=== PATIENT | female | born 1985 | race Caucasian/White ===

== ENCOUNTER 2018-05-25 17:20 | Inpatient (IN) | payer OTHER ==
[2018-05-25 18:00] LABS: Bilirubin Negative (Negative); Blood, Urine Small (Negative); Clarity CLEAR (Clear); Glucose, Urine (Dipstick) Negative (Negative); Leukocyte Moderate (Negative); Nitrite Negative (Negative); Protein, Urine (Dipstick) Negative (Neg-Trace); Specific Gravity, Urine 1.017 (1.002-1.036); Urobilinogen 0.2 mg/dL (0.2-1.0); pH, Urine 5.5 (5.0-9.0)
[2018-05-25 18:03] LABS: Bacteria/HPF 1+ HPF (None Seen); Hyaline Casts/LPF 0-3 HYALINE CAST LPF (0-3 Hyaline); Pathc Cast-AUWi Flag 0.43 (0-2.49); Pregnancy Test - Urine (BHCG) Negative (Negative); Pregu Control Background? CLEAR/WHITE (CLR/WHITE); Pregu Control Bar Appear? YES (CONTROL BAR); RBC/HPF 0-3 HPF (0-3); Specific Gravity 1.017 (1.002-1.036)
--- NOTE | 2018-05-25 21:45 | MRI ---
LUMBAR SPINE MRI NONCONTRAST: 05/25/18 INDICATION: Urinary incontinence. Cauda equina syndrome. No prior imaging comparison available. FINDINGS: The conus medullaris is normal in morphology terminating at the L1 level. There is an incidental mild disc osteophyte at T11-12 with mild effacement of ventral thecal sac. At L1-2, there is no significant central canal or neural foraminal stenosis. L2-3: Mild disc bulge without significant compromise of central canal and neural foramina. L3-4: Mild broad based disc bulge without significant central canal or neural foraminal stenosis. L4-5: Broad based disc bulge is present with mild narrowing of the central canal. Mild bilateral neur al foraminal narrowing is present. Left greater than right. L5-S1: Right paracentral/subarticular disc protrusion is present with severe right subarticular narro wing producing impingement upon the right S1 nerve root. There is moderate-severe stenosis of the lef t aspect of the terminal thecal sac, with impingement upon the traversing left S1 nerve root. This is superimposed upon a broad based disc osteophyte. There is mild bilateral neural foraminal narrowing. Mild degenerative bilateral hypertrophy of the facet joints is seen at multiple levels of the lumbar spine. IMPRESSION: Right paracentral/subarticular disc protrusion at L5-S1 with severe right subarticular stenosis impin ging the right S1 nerve root. There is moderate-severe stenosis of the left aspect of the thecal sac which also impinges the left S1 nerve root. The imaging findings do correlate to clinical diagnosis of cauda equina syndrome. Recommend emergent neurosurgical consultation. Results conveyed to GABBIE Barron of the Emergency Dept., at the time of dictation. POS: [facility]
[2018-05-25] MEDS ORDERED: Ondansetron PF 4 MG/2 ML Vial ONE (23:35)
[2018-05-25] MEDS ORDERED: Morphine 2 MG/ML SYRINGE ONE (23:35)
--- NOTE | 2018-05-26 00:40 | PDOC.FPRHP ---
- History of Present Illness Chief Complaint: urinary incontinence History of Present Illness: 32 yo F with hx of disc herniation presents with new onset urinary incontinence x 3 days. She noticed when she stood up she had urine dribling that she could not control, and when she voids she feels that she cannot void completely. Denies fever/chills. Last summer pt states she was lifting a 5 gallon bucket at her job and hurt her lower back. She has been having worsening Rt sided numbness from the right side of her tailbone, down the posterior and lateral side of her leg down to her foot since January. She does not have vulvar or groin numbness, and denies weakness. States that she has been having it worked up through workmen's compensation. Her PCP was Dr. Rodriguez in [facility] who sent her to Dr. Singletary (neuro), but for workman's comp she has been sent to neurologist Dr. Sutton. In the ED, MRI showed L5-S1 disc herniation and S1 nerve impingement. Neurology was consulted from the ED. - Allergies/Adverse Reactions Allergies Allergy/AdvReac Type Severity Reaction Status Date / Time No Known Allergies Allergy Verified 01/22/16 14:08 - Home Medications Medication Instructions Recorded Confirmed Type Acetaminophen With Codeine 1 - 2 tablet PO Q6HR PRN #0 tablet 01/23/16 Rx [Tylenol with Codeine #3] Ibuprofen [Motrin] 600 mg PO Q6HR PRN #0 tab 01/23/16 Rx - History PMHx: Ectopic in 2015, normal 2009 PSHx: Rt ankle surgery 2006, Breast augmentation 2011, ectopic surgery 2015 FHx: DM in mGM, pGM; denies cardiac disease or cancer Social: 2 cig/week for past 15 years; 2-3 alcoholic beverages/week, denies illicit drug use - Review of Systems General: denies: fever/chills, weight/appetite/sleep changes Eyes: denies: eye pain, vision changes, other (denies ear pain or hearing difficulty) ENT: reports: nasal congestion, rhinorrhea Respiratory: denies: cough, congestion Cardiovascular: denies: chest pain, palpitation Gastrointestinal: reports: constipation. denies: nausea, vomiting, diarrhea Genitourinary: reports: incontinence, other (feels unable to completely empty). denies: dysuria Skin: denies: rashes, lesions Musculoskeletal: reports: pain (Lower back) Neurological: reports: numbness (see HPI). denies: weakness - Vital signs BP: [107/59] HR: [72] RR: [16] Tmax: [98.4] Pox: [100]% on [RA] Wt: [62.1 kg] - Physical Exam Constitutional: NAD, awake, alert and oriented HEENT: normocephalic and atraumatic, PERRLA, EOMI, conjunctiva clear, grossly normal hearing, MMM, oropharynx clear, good dention Neck: supple, no LAD Heart: RRR, normal S1/S2, no murmurs/rubs/gallops Lungs: CTAB, no respiratory distress, good air movement, no rales/rhonchi, no wheezing, no retractions Abdomen: soft, non-tender, bowel sounds present, no masses/distention Musculoskeletal: normal structure, normal tone Neurological: other (No focal weakness; numbness over L5-S1 distribution from rt buttock down rt leg to foot; anal sphincter normal tone) Skin: no rash/lesions, good turgor, capillary refill <2 seconds Heme/Lymphatic: no unusual bruising or bleeding, no purpura Psychiatric: normal mood and affect, good judgment and insight, intact recent and remote memory FMR H&P: Results - Labs Lab results: Urine Ketones Negative mg/dL (Negative) 05/25/18 17:39 Urine Blood Small (Negative) H 05/25/18 17:39 Urine Nitrite Negative (Negative) 05/25/18 17:39 Ur Leukocyte Esterase Moderate (Negative) H 05/25/18 17:39 Urine RBC 0-3 HPF (0-3) 05/25/18 17:39 Urine WBC 11-20 HPF (0-3) H 05/25/18 17:39 Ur Squamous Epith Cells 4-6 HPF (0-3) H 05/25/18 17:39 Urine Bacteria 1+ HPF (None Seen) H 05/25/18 17:39 - Radiology Interpretation Other Status: report reviewed by me (MRI lumbar spine: L5-S1 disc hernation, S1 nerve impingement) FMR H&P: A/P - Problem List (1) UTI (urinary tract infection) Current Visit: Yes Status: Acute (2) Herniation of intervertebral disc between L5 and S1 Current Visit: Yes Status: Acute Code(s): M51.27 - OTHER INTERVERTEBRAL DISC DISPLACEMENT, LUMBOSACRAL REGION (3) Numbness of right lower extremity Current Visit: Yes Status: Acute Code(s): R20.0 - ANESTHESIA OF SKIN - Plan 32 yo F Concern for Cauda Equina Syndrome -New onset incontinence for past 3 days -UA + for UTI, incontinence most likely 2/2 infection -Numbness corresponding to L5-S1 dermotome down Rt side, no focal weakness, anal sphincter normal tone, no vulvar/groin numbness -MRI showed L5-S1 disc herniation and S1 nerve impingement -Neurosurgery Dr. Sutton consulted from ED, appreciate recommendations -NPO at midnight L5-S1 Disc herniation - See above UTI -1 g rocephin in ED -Urine cx pending Dispo: admit to surgical obs DVT ppx: lovenox Diet: NPO PCP: Makayla Perkins FMR H&P: Upper Level - Pertinent history Redd Barrett is a 32 year old female with a chronic low back pain and L5-S1 disc herniation who presents to the ED with worsening right lower extremity parasthesia and urinary retention over the past 3 days. She denies perineal numbness and bowel incontinence. - Pertinent findings Exam: General: alert and oriented x 3 in no distress. Neuro: CN II-XII intact grossly; 5/5 strenght throughout. Decreased sensation across L5 nerve dermatome; rectal sphincter tone intact. - Plan Date/Time: 05/26/18 0039 I, Mackenzie Richardson, have evaluated this patient and agree with findings/plan as outlined by supervisor international [place] resident. Pertinent changes/additions are listed here. 1. Acute worsening of Lumbar spinal stenosis with concern for cauda equina syndrome. - will admit to surgical for observation - Neurosurgery called from ED and recommended admission with possible intervention - will hold off on systemic steroids for now. DVT prophylaxis: Lovenox. Addendum - Attending - Attending Attestation Date/Time: 05/26/18 0146 I personally evaluated the patient and discussed the management with Dr. Anibal Barrientos I agree with the History, Examination, Assessment and Plan documented above with any addition or exceptions noted below.32 yo female with work related back injury with L5-S1 right radicular pain and recent onset urinary incontinence. Patient seen in ER with concern for Cauda equina syndrome which is not substantiated by current exam or imaging, nl anal tone and no perineal symptoms she does demonstrate,new onset urinary incontinence, Positive SLR and parathesia right S1 distribution,right lower strength appears normal. Patient is pending referral pain management for epidural steroidsl. Patient will be placed observation and consultation with Neurosurgery to determine any need for urgent surgical intervention.
[2018-05-26] MEDS ORDERED: cefTRIAXone\\ROCEPHIN 1 GM in Sodium Chloride 0.9% 100 ML IVPB SCH (01:00)
[2018-05-26] MEDS ORDERED: Senokot S 8.6-50 MG TAB PO PRN (02:26)
[2018-05-26] MEDS ORDERED: Ondansetron PF 4 MG/2 ML Vial IVP PRN (02:26)
[2018-05-26] MEDS ORDERED: Acetaminophen 325 MG TAB PO PRN (02:26)
[2018-05-26] MEDS ORDERED: Ondansetron ODT 4 MG TAB PO PRN (02:26)
[2018-05-26] MEDS ORDERED: Morphine 4 MG/ML VIAL SLOW IVP PRN (04:25)
[2018-05-26] MEDS: Enoxaparin Sodium 40 MG/0.4 ML SYRINGE SC SCH (08:30)
--- NOTE | 2018-05-26 08:32 | PRG ---
DATE OF SERVICE: 05/26/2018 NEUROSURGERY PROGRESS NOTE I personally interviewed and examined the patient, and agreed with documentation of Karen Atwood PA-C, and Anthony White PA-C. Briefly, Redd Barrett is a 32-year-old woman known to our Neurosurgery clinic from her appointment two and half weeks ago for L5-S1 disk disease with right S1 radiculopathy. The pain has not been getting significantly better in spite of our conservative management. Still unable to walk very far. Six days ago, she began to have some incontinence. She would stand up and realize her bladder was full and not make it to the bathroom in time. This has happened on and off since then. She wondered if this was urinary tract infection. She did not have any left leg symptoms or any left-sided symptoms whatsoever. She still does not. Due to the urinary incontinence, she was evaluated in the emergency department, and admitted overnight. Her urinalysis did show some bacteria. She reports normal perineal sensation subjectively. Toileting herself does not feel any different than it usually does just a matter of not appreciating that her bladder is in need of emptying. Her neurological function is stable from her evaluation in the clinic. MR imaging shows some further narrowing of the spinal canal at the lumbosacral interspace, but on the right side only. The left-sided and central sacral nerve roots are still visible in CSF and not actively compressed on the scan. There is a hint of a pars defect. The molding of the superior portion of the sacrum and the inferior portion of L5 might suggest some instability in the past or currently. My plan is to have a repeat neurosurgical examination of the perineum including rectal sensation and tone, and perineal sensation. She prefers one of our female PAs to do that and we can accommodate that request. If there is normal sensation and function, we can operate on this tomorrow. If there is abnormal sensation, then sooner out to be a bit better and Dr. Byrd has agreed to do so. I am going to get a flexion-extension views looking for instability and a CT scan looking for pars defect. If those are present, I will consider fusion in addition to decompression. If they are not present, then a wide decompression and diskectomy should be sufficient. We will keep her n.p.o. for surgery tomorrow. She is already n.p.o. and once her perineum is sufficiently examined, then we can make a decision on the date of her surgical intervention. Ms. Barrett is young and healthy, likely to be a good surgical candidate. Job ID: [id number] MTDD
--- NOTE | 2018-05-26 08:40 | RAD ---
LUMBAR SPINE SERIES 7 VIEWS: History: Back pain. Evaluation for L5-S1 stability. FINDINGS: Vertebral bodies are normal in height. The disc spaces appear well preserved. There is no evidence of spondylolisthesis. I do not appreciate any abnormal motion between the flexion and extension views. An IUD is incidentally noted. IMPRESSION: Unremarkable lumbar spine series. POS: [facility]
--- NOTE | 2018-05-26 09:49 | CT ---
CT LUMBAR SPINE NONCONTRAST: DATE: 05/26/2018. HISTORY: A 32-year-old female with low back pain and right lumbar radiculopathy. CT was ordered to evaluate f or possible L5 pars defect. FINDINGS: There are 5 lumbar-type vertebrae. Vertebral body heights are maintained. There is exaggerated lord osis of the lower lumbar spine. T11-12: Moderate discogenic degenerative changes, without central stenosis or high-grade neural mark inal stenosis. Mild disk bulge. T12-L1: Normal. L1-2: Normal. L2-3: Normal. L3-4: Minimal retrolisthesis of L3 on L4. Otherwise, essentially normal. L4-5: No central stenosis. Minimal disk bulge. Mild bilateral degenerative facet changes. Mild bi lateral neural foraminal stenosis. No L4 pars interarticularis defects. L5-S1: There are no L5 pars interarticularis defects. There are moderate right degenerative facet c hanges and mild to moderate left degenerative facet changes, causing a mild grade I anterolisthesis o f L5 on S1. Moderate disk space narrowing. Mild to moderate bilateral neural foraminal stenosis. I n addition to disk bulge, there is a prominent central and bilateral paracentral disk herniation, asy mmetrically larger on the right side than left, displacing the bilateral S1 nerve roots posteriorly a gainst the posterior elements, and deforming them, right greater than left. Additional right S2 and S3 nerve roots may also be affected. This causes severe central spinal canal stenosis and severe lat eral recess stenosis bilaterally, right greater than left. IMPRESSION: 1. Facet osteoarthrosis, moderate degenerative disk disease, and grade I spondylolisthesis at L5-S1. 2. No spondylolysis. 3. Severe central stenosis and severe lateral recess stenosis bilaterally (right worse than left) at L5-S1, frankly compressing sacral nerve roots. 4. Exaggerated lordosis of the lower lumbar spine. POS: [facility]
[2018-05-26] MEDS ORDERED: traMADol HCl 50 MG TAB PO PRN ×2 (10:53)
--- NOTE | 2018-05-26 11:26 | PRG ---
DATE OF SERVICE: 05/26/2018 SUBJECTIVE: I am seeing Ms. Redd Barrett in consultation. She came in with concern of progressive right lower extremity symptoms and urinary incontinence yesterday evening. She had seen my colleague, Dr. Sutton in clinic for L5-S1 disk extrusion, right greater than left with low back and right leg pain over the last five days. She has had also concerns of urinary dribbling. She has had no fecal incontinence. She has continued to remain ambulatory with no saddle anesthesia. MRI demonstrated a L5-S1 disk extrusion with right greater than left effacement of the sacral roots. PHYSICAL EXAMINATION: This morning, she is alert and appropriate. She has trace weakness in the right S1 myotome, but intact rectal tone on my colleague, Christopher's exam and just trace decrease in sensation in the right saddle region. She has no left lower extremity pain or motor deficits. IMPRESSION AND PLAN: The plan for the patient after discussion with Dr. Sutton is flexion-extension x-rays and CT was likely procession to surgery tomorrow for likely laminectomy infusion. I have discussed this with the patient. She is in agreement with this plan. I will let her know Dr. Sutton would be following up. I would be fine with her eating today. DIAGNOSES: 1. L5-S1 disk extrusion with sacral radiculopathy. 2. Concern for L5 spondylolysis and spondylolisthesis. Job ID: [id number]
[2018-05-26] MEDS ORDERED: Acetaminophen/Codeine 30-300mg Tablet PO PRN (12:03)
[2018-05-26] MEDS: tiZANidine HCl 4 MG TAB PO PRN ×2 (12:28→23:55)
[2018-05-26] MEDS: Acetaminophen/Codeine 30-300mg Tablet PO PRN (21:11)
[2018-05-27] MEDS ORDERED: Thrombin 5000 UNITS/5 ML VIAL ONE (06:17)
[2018-05-27] MEDS ORDERED: Bupivacaine HCl 0.5%/Epinephrine 1:200,000/PF 30 ml Vial ONE (06:17)
[2018-05-27] MEDS ORDERED: Sodium Chloride 0.9% 10 ML ONE (06:33)
[2018-05-27] MEDS ORDERED: Midazolam HCl 2 mg/2 ml Vial ONE ×2 (06:47→06:48)
[2018-05-27] MEDS ORDERED: Fentanyl 100 MCG/2 ML VIAL ONE ×3 (06:48→10:09)
[2018-05-27] MEDS ORDERED: CEFAZOLIN 2 GM/50 ML BAG ONE (06:48)
--- NOTE | 2018-05-27 06:48 | PDOC.FM ---
- Subjective Subjective: not present in room on rounds, nursing reports she went to surgery at 0600, vaginal itching/burning reported last night. No acute events overnight. - Objective Vital Signs & Weight: Vital Signs (12 hours) Temp Pulse Resp BP BP Pulse Ox 05/27/18 05:56 98.3 F 56 L 16 92/50 L 99 05/26/18 23:55 65 18 105/53 L 98 05/26/18 20:00 97.9 F 69 16 108/57 L 100 Weight Weight 62.1 kg I&O: 05/25/18 05/26/18 05/27/18 06:59 06:59 06:59 Intake Total 0 480 Balance 0 480 Dx/Plan (1) Herniation of intervertebral disc between L5 and S1 Code(s): M51.27 - OTHER INTERVERTEBRAL DISC DISPLACEMENT, LUMBOSACRAL REGION Status: Acute (2) UTI (urinary tract infection) Status: Acute - Plan Plan: L5-S1 protrusion -Numbness corresponding to L5-S1 dermotome down Rt side, no focal weakness, anal sphincter normal tone, no vulvar/groin numbness - suspicion for cauda equina low at this point, continue to monitor for changes -MRI showed L5-S1 disc herniation and S1 nerve impingement -Neurosurgery Dr. Sutton consulted from ED, appreciate recommendations -NPO at midnight, for laminectomy/fusion 05/27 L5-S1 Disc herniation - See above UTI - New onset incontinence for past 3 days, UA + for UTI, - 1 g rocephin in ED - Urine cx pending - consider monostat for yeast Code: full DVT ppx: lovenox Dispo: surgery today, continue to follow. Addendum - Attending - Attending Attestation Date/Time: 05/27/18 6505 I personally evaluated the patient and discussed the management with Dr. Garcia I agree with the History, Examination, Assessment and Plan documented above with any addition or exceptions noted below - Patient denies complaints. Comfortable s/p surgery. Afebrile VSS. A/P: 1) L-S radiculopathy secondary to herniated disc- s/p laminectomy and microdoscectomy- plans as per neurosurgery. 2) UTUI- urine culture negative to date. 3) Yeast vaginitis- will give one dose of diflucan.
--- NOTE | 2018-05-27 07:49 | PRG ---
DATE OF SERVICE: 05/27/2018 NEUROSURGERY PROGRESS NOTE Nena was examined yesterday and her MR suggested a small pars defect at L5. We had a CT scan done and flexion-extension x-rays. The CT did not reveal pars defect and flexion-extension did not show overt instability. Nena still has excruciating back and radiating leg pain, a numb area in the posterior thigh and the right gluteal area has increased in size. There have been no episodes of incontinence. This morning at the time of our examination, she is stable. We took a long time to review x-ray findings thus far in the preoperative area and we discussed the lack of need for a fusion operation. I described to them a decompressive laminectomy at L5-S1 across the entire canal and then a microdiskectomy with a right-sided approach. Informed Consent: I discussed indications, risks, benefits, alternatives, expected outcomes from surgery. The risks we discussed included, but were not limited to, bleeding, infection, CSF leak, nerve damage, paralysis, incontinence, cardiopulmonary complications of anesthesia, major blood vessel injury, and . She understands the risks and wants to proceed. If she feels well after surgery, she can go home today. Job ID: [id number]
[2018-05-27] MEDS ORDERED: tiZANidine HCl 4 MG TAB PO PRN (09:28)
[2018-05-27] MEDS ORDERED: diphenhydrAMINE 25 MG CAP PO PRN (09:28)
[2018-05-27] MEDS ORDERED: Milk Of Magnesia 30 ML UDCUP PO PRN (09:28)
[2018-05-27] MEDS ORDERED: Mag-Al 1200 mg/1200 mg/30 ML UDCUP PO PRN (09:28)
[2018-05-27] MEDS ORDERED: diphenhydrAMINE 50 MG/ML VIAL IVP PRN (09:28)
[2018-05-27] MEDS ORDERED: Promethazine 25 MG TAB PO PRN (09:28)
[2018-05-27] MEDS ORDERED: Promethazine HCl 25 MG/ML VIAL IM PRN ×3 (09:28→09:41)
[2018-05-27] MEDS ORDERED: Bisacodyl 10 MG SUPP PR PRN (09:28)
[2018-05-27] MEDS ORDERED: HYDROmorphone 2 MG/ML VIAL SLOW IVP PRN (09:41)
[2018-05-27] MEDS ORDERED: Promethazine HCl 25 MG/ML VIAL SLOW IVP PRN ×2 (09:41)
[2018-05-27] MEDS ORDERED: Ondansetron HCl/PF 4 MG/2 ML Vial IVP PRN ×2 (09:41)
--- NOTE | 2018-05-27 10:23 | HP ---
HISTORY OF PRESENT ILLNESS: This is a 32-year-old female, who came into the hospital last night due to urinary incontinence for the past 4 or 5 days. Ms. Barrett states that she got off work in the evening when they were sitting and noticed that she had to go to the bathroom, however, when she stood up, a little bit came out. She thought that perhaps she had UTI after taking some AZO cranberry pills. She states that she has not done any new heavy lifting or twisting since she was seen in our Neurosurgery Department on 05/10/2018. The patient states that she has not improved over the last week and a half or so since our last visit. She denies any left-sided symptoms. She states that original injury was due to lifting a bucket of soaps off the counter when she lifted and twisted. She states that all twisting sense is still along the S1 dermatome on the right; numbness and tingling in her right buttock, however, she states that she feels in perineum an urge to use the restroom, both bowel and bladder. REVIEW OF SYSTEMS: A 10-point review of systems has been completed and is negative other than stated in the above HPI. PAST MEDICAL HISTORY: Abnormal Pap, anemia. PAST SURGICAL HISTORY: Right ankle surgery in 2005 with instrument removed in 2008, cyst removed in 2010, breast augmentation in 2014, ectopic and rupture repair in 2015, LEEP procedure in 2017, [place] 2018. PAST HOSPITALIZATIONS: Childbirth in 2009, dehydration in 2011, ectopic in 2016. FAMILY HISTORY: Noncontributory. SOCIAL HISTORY: The patient is a smoker. Drinks alcohol. Does not use any other illicit drugs. She is sexually active, , and lives with her and children. MEDICATIONS: Tramadol. ALLERGIES: NO KNOWN DRUG ALLERGIES. PHYSICAL EXAMINATION: GENERAL: The patient is resting in the hospital bed this morning. She is surrounded by her family. She is well appearing, well nourished, alert, and oriented. HEENT: Head is normocephalic, atraumatic. Pupils are equal, round, and reactive to light. Vision in intact. Hearing is intact. Moist mucous membranes. RESPIRATION: Normal work of breathing on room air and symmetric chest rise. CARDIO: Regular rate and rhythm. NEUROLOGIC: The patient is alert and oriented x3. Speech is spontaneous and fluent. Normal attention span. Normal fund of knowledge. Cranial nerves 2 through 12 are intact. EXTREMITIES: All 4 extremities are moving well. Normal muscle tone and bulk. Extremities, 5/5 bilateral strength in hip flexion, knee flexion, knee extension , dorsiflexion, plantar flexion, EHL, S1 radiculopathy on the right side. Positive single leg raise on the right. Sensation of hip, normal. Reflexes are symmetric. Has decreased sensation on the lateral right foot, lower leg, and lateral thigh. The patient has a perineum sensation and normal rectal tone. IMAGING: MRI shows a right paracentral disk protrusion of the L5-S1 with severe right subarticular stenosis impinging the right S1 nerve root. There is [id number] stenosis of the left aspect of the thecal sac, which also impinges the left S1 nerve root. The imaging findings do correlate with clinical diagnosis of cauda equina syndrome. ASSESSMENT AND PLAN: The patient has lumbar herniated nucleus pulposus with S1 radiculopathy on the right eliciting her current sensation with perianal and good rectal tone. We will meet her before surgery tomorrow. We will have her n.p.o. after midnight and surgery tomorrow morning. Job ID: [id number] [facility]
--- NOTE | 2018-05-27 10:24 | OP ---
DATE OF PROCEDURE: 05/27/2018 RADIAL ROUTER OPERATOR: Karen Atwood PA-C. PREOPERATIVE INDICATION: Treat pain and prevent neurological deterioration. PREOPERATIVE DIAGNOSIS: Intervertebral disk herniation L5-S1 with right S1 radiculopathy and right S2 radiculopathy. 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 OPERATIVE PROCEDURE: Decompressive laminectomy L5-S1, medial facetectomy and foraminotomy right L5-S1, and right-sided microdiskectomy L5-S1. PREOPERATIVE MEDICATION: Ancef 2 g IV. DRAIN NUMBER: Zero. DRAIN TYPE: None. DESCRIPTION OF PROCEDURE: The patient was brought to the operating room. General endotracheal anesthesia was induced. The patient was carefully positioned on the [place] frame with appropriate padding for the chest and hips. A lateral fluoro radiograph was used to plan our incision. The lumbar skin was sterilely prepped and draped. We opened the midline incision with a 10 blade knife. We controlled bleeding with bipolar and monopolar cautery. We used monopolar cautery to dissect through subcutaneous tissues to the thoracodorsal fascia. We incised the fascia in the midline and reflected the paraspinal muscles off the spinous process and laminae of L5 and S1. A self-retaining retractor was placed and a lateral fluoro radiograph confirmed the levels upon which we were operating. We then used Leksell and Kerrison rongeurs to remove the spinous process of L5 to thin the lamina and perform the laminectomy. We widened our laminectomy defect until we were in line vertically with the S1 pedicles. We removed the yellow ligament in piecemeal fashion. We removed the superior portion of the sacral lamina and easily visualized the common thecal sac, the S1 and S2 nerve roots. We brought the operative microscope into the field. Under microscopic magnification and using microsurgical techniques, we carefully mobilized the right-sided sacral nerve roots medially, saw intervertebral disk protrusion that stretched all the nerve roots. We incised just right of the midline and some disk came out under pressure. We removed multiple loose fragments of disk. We reached into the interspace and removed more loose fragments that were not adherent to the endplates. At the completion of our diskectomy, all of the remaining disk was firmly adherent to the endplates of L5 and S1 and was not at risk for reherniation. We irrigated copiously with bacitracin irrigation. We infused local anesthetic in the paraspinal muscles. We closed the wound in anatomical layers and we applied a sterile dressing. This was a clean case, no contamination. Job ID: [id number]
[2018-05-27] MEDS ORDERED: Morphine 2 MG/ML SYRINGE SLOW IVP PRN (10:45)
[2018-05-27] MEDS ORDERED: Fluconazole 100 MG TAB PO SCH (11:45)
[2018-05-27] MEDS: Acetaminophen/Codeine 30-300mg Tablet PO PRN ×3 (13:27→22:02)
[2018-05-27] MEDS: CEFAZOLIN 2 GM/50 ML-DEXTROSE 2 GM in Premix Bag 1 BAG IVPB SCH (13:30)
[2018-05-27] MEDS: Enoxaparin Sodium 40 MG/0.4 ML SYRINGE SC SCH (13:31)
[2018-05-27] MEDS ORDERED: CEFAZOLIN/Water 2 GM/20 ML SYRINGE SLOW IVP SCH (16:00)
[2018-05-27] MEDS ORDERED: PROPOFOL 200 MG/20 ML VIAL ONE (17:15)
[2018-05-27] MEDS ORDERED: Rocuronium Bromide 10 MG/ML (10ML VIAL) ONE (17:15)
[2018-05-27] MEDS ORDERED: PHENYLEPHRINE-NS 100 MCG/ML 10 ML SYRINGE ONE (17:15)
[2018-05-27] MEDS ORDERED: Ondansetron PF 4 MG/2 ML Vial ONE (17:15)
[2018-05-27] MEDS ORDERED: Lidocaine 1% PF 5 ML VIAL ONE (17:15)
[2018-05-27] MEDS ORDERED: ePHEDrine 50 MG/ML VIAL ONE (17:15)
[2018-05-27] MEDS ORDERED: Glycopyrrolate 0.2 MG/ML 5 ML SYRINGE ONE (17:15)
[2018-05-27] MEDS ORDERED: Ketorolac Tromethamine 30 MG/ML VIAL ONE (17:15)
[2018-05-27] MEDS ORDERED: Dexamethasone 20 MG/5 ML VIAL ONE (17:15)
[2018-05-27] MEDS: Sodium Chloride 0.9% 1,000 ML IV SCH ×2 (20:48→20:51)
[2018-05-27] MEDS: tiZANidine HCl 4 MG TAB PO PRN (20:49)
[2018-05-28] MEDS: CEFAZOLIN 2 GM/50 ML-DEXTROSE 2 GM in Premix Bag 1 BAG IVPB SCH (01:14)
[2018-05-28] MEDS: Acetaminophen/Codeine 30-300mg Tablet PO PRN ×2 (02:00→08:21)
--- NOTE | 2018-05-28 06:36 | PDOC.FM ---
- Subjective Subjective: Mrs. Barrett is resting comfortably in bed, she denies any new numbness or pain, fever or chills. She is ready to go home - Objective Vital Signs & Weight: Vital Signs (12 hours) Temp Pulse Resp BP BP Pulse Ox 05/28/18 02:00 98.7 F 76 16 98/50 L 100 05/27/18 20:00 98.9 F 90 18 114/70 99 Weight Weight 62.1 kg I&O: 05/26/18 05/27/18 05/28/18 06:59 06:59 06:59 Intake Total 0 480 960 Balance 0 480 960 Phys Exam - Physical Examination Constitutional: NAD HEENT: moist MMs Neck: no JVD Gastrointestinal: no distention Musculoskeletal: no edema Neurological: moves all 4 limbs Psychiatric: normal affect Skin: no rash Dx/Plan (1) Herniation of intervertebral disc between L5 and S1 Code(s): M51.27 - OTHER INTERVERTEBRAL DISC DISPLACEMENT, LUMBOSACRAL REGION Status: Acute (2) UTI (urinary tract infection) Status: Acute - Plan Plan: L5-S1 protrusion -Numbness corresponding to L5-S1 dermotome down Rt side, no focal weakness, anal sphincter normal tone, no vulvar/groin numbness - suspicion for cauda equina low at this point, continue to monitor for changes -MRI showed L5-S1 disc herniation and S1 nerve impingement -Neurosurgery Dr. Sutton consulted from ED, appreciate recommendations - laminectomy/disectomy at 05/27 L5-S1 Disc herniation - See above UTI - New onset incontinence for past 3 days, UA + for UTI, - 1 g rocephin in ED - Urine cx pending - s/p monostat for yeast Code: full DVT ppx: lovenox Dispo: POD1, ready for DC. Addendum - Attending - Attending Attestation Date/Time: 05/28/18 1733 I personally evaluated the patient and discussed the management with Dr. Garcia I agree with the History, Examination, Assessment and Plan documented above with any addition or exceptions noted below- Patient left prior to my seeing her. Stable for discharge as per neurosurgery. FOllow-up wit neurosurgery..
--- NOTE | 2018-05-28 06:54 | PRG ---
DATE OF SERVICE: 05/28/2018 NEUROSURGERY PROGRESS NOTE Ms. Barrett was one day out from L5-S1 laminectomy with right-sided microdiskectomy. She reports she feels better than she has in the last 2 to 3 months. The radiating pain down her leg is gone. She is able to get in and out of bed without much difficulty. She is walking in the halls and to the bathroom. She is able to control the bladder. Ms. Barrett does not have any new deficits I can appreciate. Ms. Barrett is ready for discharge. We discussed wound care, activity restrictions, and followup arrangements and she expresses her understanding. Job ID: [id number]
[2018-05-28 08:12] VITALS: BP 97/52; TEMP 98.1
[2018-05-28] MEDS: Enoxaparin Sodium 40 MG/0.4 ML SYRINGE SC SCH (08:22)
[2018-05-28] MEDS: tiZANidine HCl 4 MG TAB PO PRN (09:59)
--- NOTE | 2018-05-31 12:36 | DIS ---
DATE OF ADMISSION: 05/27/2018 DATE OF DISCHARGE: 05/28/2018 RESIDENT: Ruslan Garcia DO. ADMITTING ATTENDING: Yusuf Hand MD DISCHARGE ATTENDING: Dr. Deepali Davey. CONSULTS: Neurosurgery, Dr. Sutton. PROCEDURES: L5-S1 laminectomy and microdiskectomy. IMAGING DATA: Lumbar spine MRI significant for right paracentral/subarticular disk protrusion at L5-S1 with severe right subarticular stenosis impinging the right S1 nerve root, [id number] stenosis of the left aspect of the thecal sac which also impinges the left S1 nerve root. Imaging findings do correlate to clinical diagnosis of cauda equina, and I recommend emergent neurosurgical consultation. Repeat lumbar spine CT significant for facet osteoarthritis, moderate degenerative disk disease, grade 1 spondylolisthesis at L5-S1. No spondylolysis. Central canal stenosis. Exaggerated lordosis of the lower lumbar spine. PRIMARY DIAGNOSIS: L5-S1 protrusion. SECONDARY DIAGNOSES: 1. L5-S1 disk herniation with associated radiculopathy. 2. Urinary tract infection. 3. Vaginal yeast infection. DISCHARGE MEDICATIONS: 1. Tylenol No. 3 one to two tabs p.o. q.6 hours p.r.n. 2. Ibuprofen 600 mg p.o. q.6 hours. 3. Tizanidine 4 mg p.o. t.i.d. DISCONTINUED MEDICATIONS: None. HISTORY OF PRESENT ILLNESS AND HOSPITAL COURSE: Ms. Mary Prince is a 32-year-old female with a history of disk herniation who presents with new onset urinary incontinence for 3 days. She reports a history of lumbar spine disk herniation that was worked up in the outpatient setting by Dr. Sutton in a conservative manner, acutely worsening with the incontinence and right-sided numbness and pain radiating down her leg. She denies any saddle anesthesia, weakness, fecal incontinence. At this time, consulted emergently from the ED with Dr. Sutton of Neurosurgery, reviewed imaging and recommended followup imaging the next day, no lumbar instability was seen. So, the surgery proceeded with the following day, and day #2 of admission. The patient tolerated the procedure well with some resolution of symptoms at that time. The patient's urine also was positive for UTI, which she was treated with a gram of Rocephin. Afterwards, she reported vaginal yeast infection type symptoms and was treated with one dose of oral fluconazole for resolution of symptoms. The patient continued to remain stable, denied urinary incontinence, Dr. Sutton recommended discharge to follow up in 2 weeks. DISPOSITION: Stable. DISCHARGE INSTRUCTIONS: 1. Location: Home. 2. Diet: Heart healthy. 3. Activity: As tolerated per Orthopedic restrictions as outlined by Dr. Sutton. 4. Followup: Follow up in [address] Sutton, Neurosurgery. Job ID: [id number]
== END 2018-05-28 10:19 | disposition home or self-care (01) | DRG 519 ==
LOC: ERS 17:20 → ERHOLD 23:31 → 3SE 05-26 02:13 → OBSVTOIN 05-27 14:05
PROVIDERS: ADMIT Family Medicine; ATTEND Family Medicine
PROC: 01NB0ZZ Release Lumbar Nerve, Open Approach (ICD-10-PCS; principal; 2018-05-27)
PROC: 0SB20ZZ Excision of Lumbar Vertebral Disc, Open Approach (ICD-10-PCS; 2018-05-27)
DX: M51.16 Intervertebral disc disorders with radiculopathy, lumbar region (principal); N39.0 Urinary tract infection, site not specified; B37.3 Candidiasis of vulva and vagina; F17.210 Nicotine dependence, cigarettes, uncomplicated; Z79.899 Other long term (current) drug therapy
CPT/HCPCS: 72120; 72131; 72148; 76000; 81003; 81015; 81025; 87086; 96374; 96375; J0670; J0696; J1100; J1650; J1885; J2001; J2250; J2270; J2405; J2704; J3010; J3370; J3490; J7050

== ENCOUNTER 2018-12-29 14:10 | Outpatient (CLI) | payer OTHER ==
--- NOTE | 2018-12-29 15:08 | RAD ---
3 LATERAL VIEWS LUMBAR SPINE: Date: 12/29/18 INDICATION: Lumbar radiculopathy. FINDINGS: There is Grade I spondylolisthesis at L5-S1. This does not significantly or discernably change with r espect to flexion and extension positioning. There is accentuation of lumbar lordosis inferiorly. Fac et sclerosis is present inferiorly. There is no compression deformity. IMPRESSION: Grade I spondylolisthesis, L5-S1, without significant translational motion. POS: C
--- NOTE | 2018-12-29 16:32 | MRI ---
MRI LUMBAR SPINE WITH AND WITHOUT CONTRAST: DATE: 12/29/18 HISTORY: 33-year-old female with low back pain and right lumbar radiculopathy. COMPARISON: Noncontrast MRI of 05/25/18. TECHNIQUE: Multiple sequences obtained in axial and sagittal planes, pre and post IV injection of gadolinium-bas ed contrast agent: 14 mL Multihance. FINDINGS: Distended urinary bladder. Vertebral body heights are maintained. Conus medullaris terminates at L1-2 . Cauda equina is arranged in a symmetrical, normal distribution throughout the thecal sac. No major bone marrow signal abnormality. T11-12: Moderate disc space narrowing, mild diffuse disc bulge, but no central or neural foraminal st enosis. T12-L1: Normal. L1-2: Normal. L2-3: Normal. L3-4: Normal disc. Bilateral mild facet DJD. No central or neural foraminal stenosis. L4-5: Bilateral mild facet DJD. Mild bilateral neural foraminal stenosis. Mild diffuse disc bulge. No central stenosis. No high grade disc space narrowing. L5-S1: Hypoplastic bilateral facet joints. Mild grade I anterolisthesis of L5 on S1. New midline lami nectomy defect Interval surgical resection of the previously demonstrated central and bilateral parac entral disc herniation that was impinging on bilateral nerve roots and causing high grade central spi nal canal stenosis. Currently, there is small residual central and bilateral paracentral disc protrus ion. The right posterior aspect of the disc space has enhancement representing postsurgical scar tiss ue within the disc space. Mild enhancing scar tissue at the bilateral lateral recesses surrounding th e bilateral S1 nerve roots. Enhancing postsurgical scar tissue at the laminectomy defect centered to the left of midline extending posteriorly into the retrospinal soft tissues. No evidence of significa nt recurrent or residual disc herniation in the spinal canal. Mild-moderate bilateral neural foramina l stenosis is unchanged. IMPRESSION: 1. Status post midline decompressive laminectomy at L5-S1, relieving the previously demonstrated high grade central spinal canal stenosis and nerve root impingement. 2. Postsurgical scar tissue surrounding the bilateral S1 nerve roots in the lateral recesses at L5-S1. 3. Chronic exaggerated lordosis of the lower lumbar spine, and minimal/mild grade I spondylolist hesis at L5-S1, with moderate degenerative disc disease, and mild to moderate bilateral neural forami nal stenosis, unchanged. 4. No significant central spinal canal stenosis at any level. JN R POS: BEL
[2018-12-29] MEDS ORDERED: Gadobenate Dimeglumine 529 MG/1 ML (20ML VIAL) ONE (16:50)
== END 2018-12-29 14:11 | disposition home or self-care (01) ==
LOC: TBSIIMAG 14:10
PROVIDERS: ATTEND Neurological Surgery
DX: M51.17 Intervertebral disc disorders with radiculopathy, lumbosacral region (principal); M43.17 Spondylolisthesis, lumbosacral region; M48.07 Spinal stenosis, lumbosacral region; L90.5 Scar conditions and fibrosis of skin
CPT/HCPCS: 72100; 72158; A9577

== ENCOUNTER 2020-01-18 08:43 | Outpatient (CLI) | payer OTHER ==
--- NOTE | 2020-01-18 11:04 | MRI ---
MRI of thelumbar spine: 01/18/2020 COMPARISON:12/29/2018 HISTORY:Low back pain with cramping, numbness, and tingling of the right leg, right lower extremity r adiculopathy TECHNIQUE: Multiplanar multisequence MR imaging of thelumbar spine with and without contrast Findings:The sagittal STIR imaging demonstrates no focal area of osseous marrow edema. On the basis of 5 lumbar type vertebral bodies, the conus medullaris terminates at T12-L1. T11-12: There is disc space narrowing with disc desiccation and mild disc bulge. No associated centra l canal or neural foraminal stenosis. T12-L1: Unremarkable L1-2: Unremarkable L2-3: Mild bilateral facet hypertrophy. No significant central canal or neural foraminal stenosis. L3-4: There is mild bilateral facet hypertrophy, left greater than right. No significant central andrew l or neural foraminal stenosis. L4-5: Mild bilateral facet hypertrophy. Partial disc desiccation and minimal disc bulge present. Mild disc bilateral neural foraminal stenosis. No significant central canal stenosis. L5-S1: The patient appears status post bilateral laminectomy. There is disc space narrowing with disc desiccation and mild disc bulge. No associated central canal stenosis. Bilateral facet hypertrophy is noted, right greater than left. There is mild bilateral neural foraminal stenosis, right greater t muniz left. The visualized retroperitoneal structures demonstrate no acute findings. The postcontrast imaging dem onstrates no abnormal enhancement involving the contents of the thecal sac, the intervertebral discs, or the imaged osseous structures. IMPRESSION:Postoperative and degenerative changes of the lumbar spine as detailed above.
[2020-01-18] MEDS ORDERED: Magnevist 469MG/ML 20 ML VIAL ONE (16:29)
== END 2020-01-18 08:44 | disposition home or self-care (01) ==
LOC: BICMRI 08:43
PROVIDERS: ATTEND Physical Medicine & Rehabilitation
DX: M47.26 Other spondylosis with radiculopathy, lumbar region (principal); S33.5XXD Sprain of ligaments of lumbar spine, subsequent encounter; M54.5 Low back pain; Z98.890 Other specified postprocedural states
CPT/HCPCS: 72158; A9579